=== PATIENT | male | born 1970 | race Caucasian/White ===

== ENCOUNTER → 2017-07-15 | Outpatient (CLI) | payer OTHER | LOC: FIMAGING 15:18 | PROVIDERS: ATTEND Emergency Medicine | DX: I82.492 Acute embolism and thrombosis of other specified deep vein of left lower extremity (principal) ==

== ENCOUNTER → 2017-07-28 | Outpatient (CLI) | payer OTHER | LOC: FIMAGING 07:36 | PROVIDERS: ATTEND Physician Assistant | DX: Z09 Encounter for follow-up examination after completed treatment for conditions other than malignant neoplasm (principal); I82.492 Acute embolism and thrombosis of other specified deep vein of left lower extremity ==